=== PATIENT | female | born 1990 | race African-American/Black ===

== ENCOUNTER 2018-08-09 13:35 | Emergency (ER) | payer MEDICAID ==
[~2018-08-09] VITALS: Ht 165.1 cm; Wt 121.1 kg
[2018-08-09 13:54] VITALS: BP 104/70
== END 2018-08-09 16:46 | disposition home or self-care (01) ==
LOC: ER 13:35
DX: M72.2 Plantar fascial fibromatosis (principal); L02.411 Cutaneous abscess of right axilla; J45.909 Unspecified asthma, uncomplicated; Z88.1 Allergy status to other antibiotic agents; Z88.8 Allergy status to other drugs, medicaments and biological substances